=== PATIENT | female | born 1975 | race Caucasian/White ===

== ENCOUNTER 2020-02-17 10:30 | Emergency (ER) | payer OTHER ==
[2020-02-17 10:35] VITALS: BP 117/82; PULSE 83; TEMP 98.3; BMI 21.7
--- NOTE | 2020-02-17 11:19 | PDOC ---
History of Present Illness - General Chief Complaint: Pain Stated Complaint: HURT SHOULDER Time Seen by Provider: 02/17/20 10:46 History Source: Patient Exam Limitations: No Limitations - History of Present Illness Initial Comments: 02/17/20 11:16 44-year-old female presents to ED with complaints of left shoulder pain for the past 6 months worsening in severity over the past 2 weeks. Patient states he went to a chiropractor who recommended acupuncture which she has been doing regular basis but denies any improvement of discomfort. Patient states has not had any imaging. Denies any specific injury. 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 Timing/Duration: other Severity: mild Associated Symptoms: reports: denies symptoms Past History - Travel History Traveled outside of the country in the last 30 days: No Close contact w/someone who was outside of country & ill: No - Medical History Allergies/Adverse Reactions: Allergies Allergy/AdvReac Type Severity Reaction Status Date / Time No Known Allergies Allergy Verified 02/17/20 10:35 Home Medications: Ambulatory Orders NK [No Known Home Medication] 02/17/20 COPD: No - Reproductive History Is Patient Now?: No - Psycho-Social/Smoking History Patient Lives Alone: No Lives with/in: spouse/SO Smoking History: Never smoked - Substance Abuse Hx (Audit-C & DAST Scrn) How often the patient has a drink containing alcohol: Never Score: In Men: 4 or > Positive; In Women: 3 or > Positive: 0 Screen Result (Pos requires Nsg. Audit-10AR): Negative Review of Systems - Review of Systems Able to Perform ROS?: Yes Is the patient limited Turkmen proficient: No Constitutional: No: Symptoms Reported HEENTM: No: Symptoms Reported Respiratory: No: Symptoms reported Cardiac (ROS): No: Symptoms Reported ABD/GI: No: Symptoms Reported : No: Symptoms Reported Musculoskeletal: Yes: Joint Pain, Muscle Pain, Neck Pain Integumentary: No: Symptoms Reported Neurological: Yes: Symptoms reported Endocrine: No: Symptoms Reported Hematologic/Lymphatic: No: Symptoms Reported *Physical Exam - Vital Signs Last Vital Signs Temp Pulse Resp BP Pulse Ox 98.3 F 83 18 117/82 99 02/17/20 10:33 02/17/20 10:33 02/17/20 10:33 02/17/20 10:33 02/17/20 10:33 - Physical Exam General Appearance: Yes: Nourished, Appropriately Dressed. No: Apparent Distress HEENT: positive: EOMI Neck: positive: Tender (left trapezius), Supple. negative: Decreased range of motion Respiratory/Chest: positive: Lungs Clear, Normal Breath Sounds. negative: Chest Tender, Respiratory Distress, Accessory Muscle Use Cardiovascular: positive: Regular Rhythm, Regular Rate. negative: Murmur Extremity: positive: Normal Inspection, Tender (post aspect of left shoulder and distal aspect of left trapezius). negative: Normal Range of Motion (unable to perform lat or front raise greater than 100 degrees due to discomfort) Integumentary: positive: Normal Color, Warm, Moist Neurologic: positive: Motor Strength 5/5 (ambulatory) ED Treatment Course - RADIOLOGY Radiology Studies Ordered: Category Date Time Status SHOULDER-LEFT [RAD] Stat Radiology 02/17/20 11:03 Ordered Medical Decision Making - Medical Decision Making 02/17/20 11:23 Chief complaint: Left shoulder pain for the past 6 months aggravated with movement. No imaging done but has seen a chiropractor will begin acupuncture. Exam: Patient with decreased range of motion with lateral and front raise along with posterior shoulder discomfort generally. plan: Shoulder x-ray ordered 02/17/20 11:24 X-ray negative for acute pathology. Will recommend orthopedist Discharge - Discharge Information Problems reviewed: Yes Clinical Impression/Diagnosis: Shoulder joint pain Condition: Good Disposition: HOME - Follow up/Referral Referrals: Bernarda Cheek MD [Primary Care Provider] - Steve Jurado MD [Staff Physician] - - Patient Discharge Instructions Patient Printed Discharge Instructions: DI for Shoulder Tendinopathy Additional Instructions: At this time I recommend taking NSAIDs such as Motrin 600 mg every 8 hours to decrease the inflammation Apply heating pad to affected area and follow-up with referred orthopedist - Post Discharge Activity
== END 2020-02-17 11:28 | disposition home or self-care (01) ==
LOC: JERFT 10:30
DX: M25.512 Pain in left shoulder (principal)
CPT/HCPCS: 73030-TC-LT-FY; 99283-25